=== PATIENT | female | born 1965 | race African-American/Black ===

== ENCOUNTER 2018-05-20 12:13 | Inpatient (IN) | payer OTHER ==
[~2018-05-20] VITALS: Ht 149.9 cm; Wt 101.2 kg
--- NOTE | ~2018-05-20 | HC ---
[facility] [place] [address] CONSULTATION Name: JAYNE REYNOSO Room #: 464-P ADM IN M.R.#: [id number] Admission: 05/20/18 Attend Phys: Coleman Kelly MD Discharge: Date of : 63 Report #: [id number] THIS REPORT FOR: //name// CC: [facility] physician/PCP Coleman Kelly TYPE OF REPORT: Pulmonary consultation. PRIMARY CARE PHYSICIAN: Selma Roldan M.D. REFERRAL PHYSICIAN: Coleman Kelly M.D. REASON FOR REFERRAL: Asthma. HISTORY OF PRESENT ILLNESS: The patient is a 53-year-old -French female with severe asthma, who presents with progressive dyspnea. A pulmonary consultation was requested. The patient states that she was diagnosed with asthma at 24 years of age. She has been relatively mild and intermittent. She has not been on any regular inhalers until the past year. This will be a second ER visit within the past couple of months. She was in her usual state of health until for the past 2-3 weeks, she started to develop increasing dyspnea, nonproductive cough. With worsening symptoms, she presented to the Emergency Room. She also has allergies. Usually it is mild. She states particularly this year has been significant. She does not take antihistamines on a regular basis. When she was seen in the ER a few months ago, she was given Advair. She ran out of medications. She was also given Symbicort along the line. According to the patient, she has never seen a prison officer in the past. Otherwise, denies any nausea, vomiting, diarrhea, hematemesis, hematochezia or melena. She denies any chest pain, productive cough or hemoptysis. PAST MEDICAL HISTORY: Asthma, diagnosed at 24 years of age; spinal stenosis; seasonal allergies, primary during summer; hypertension; osteoarthritis involving neck, low back and bilateral hips, requiring left hip surgery and right knee replacement. PAST SURGICAL HISTORY: As mentioned above including uterine ablation, total hysterectomy with bilateral salpingo-oophorectomy and diagnostic laparoscopy. ALLERGIES: To TALC POWDER, which causes purities and hives. [address] [address] CONSULTATION Name: JAYNE REYNOSO Room #: 464-P ADM IN M.R.#: [id number] Admission: 05/20/18 Attend Phys: Coleman Kelly MD Discharge: Date of : 63 Report #: [id number] HOME MEDICATIONS: Include Symbicort 80 mcg 1 puff twice a day, albuterol p.r.n. and prednisone 20 mg 1 tablet b.i.d. FAMILY HISTORY: Noncontributory. SOCIAL HISTORY: She denies any tobacco or alcohol use. REVIEW OF SYSTEMS: As mentioned above, otherwise 10-point system review negative. PHYSICAL EXAMINATION: GENERAL: She is awake, alert, in no apparent distress. RADIOLOGICAL DATA: Chest x-ray is clear. LABORATORY DATA: WBC 9000 with 8.5% eosinophil, hemoglobin is normal and platelets are normal. Albumin normal. IMPRESSION: 1. Acute exacerbation of asthma, probably related to seasonal allergies. Chest x-ray is clear. Based on the history, asthma appears to be mild and intermittent. 2. Elevated eosinophil counts, is consistent with a history of allergies. 3. Moderate exogenous obesity. She should be screened for possible sleep related breathing disorder. She is at risk for reflux disease, which may affect her asthma. RECOMMENDATIONS: Agree with current treatment including corticosteroids, bronchodilators. DVT and GI prophylaxis recommended. As an outpatient based on pulmonary function test, I will be recommended. She should also be screened for possible sleep disorder. Thank you for this consultation. <ELECTRONICALLY SIGNED> By: Nathan Crook MD 05/22/18 1542 1201 1242 Nathan Crook MD /nt
--- NOTE | ~2018-05-20 | EKG ---
[place] [address] [address] [place] [address] ELECTROCARDIOGRAM REPORT Name: JAYNE REYNOSO Room #: [facility]..#: [id number] Admission: Attend Phys: Discharge: Date of : 63 Report #: [id number] THIS REPORT FOR: //name// [facility] ED Test Date: 2018-05-20 Test Time: 12:18:53 Pat Name: JAYNE REYNOSO Department: Room: Gender: F Seo Professional: [facility] : 1965 Requested By: Jia Johnson Order Number: [id number] MD: Rakan Rizzo Measurements Intervals [place] Rate: 102 P: 58 DC: 145 QRS: 76 QRSD: 66 T: 1 QT: 329 QTc: 429 Interpretive Statements Sinus tachycardia Otherwise no significant abnormality Compared to ECG 07/02/2013 11:47:59 heart rate has increased Electronically Signed On 05-20-2018 13:01:41 CDT by Rakan Rizzo [email or web address] <ELECTRONICALLY SIGNED> By: Rakan Rizzo MD, [facility] 05/20/18 1301 1218 1218 Rakan Rizzo MD, FACC /EPI
[~2018-05-20 12:13] MED LIST: ACCUNEB0.63 MG/3 INH; ACETAMINOPHEN-1 EAC1; ALBUTEROL INHAL17 GM IH; CARISOPRODOL 3350 MG PO; COLACE100 MG; DARVOCET-N 1001 EACH PO; FLAGYL500 MG PO; FLECTOR1 EA TOP; FLEXERIL PO; GABAPENTIN 100100 MG PO; HYDRALAZINE 2525 M1; HYDROCHLOROTHIA25 M1 PO; HYDROCODON-ACE1 EAC7; HYDROCODON-ACE1 EAC7 PO; HYDROCODONE-AP1 EAC6; IBUPROFEN 800800 M1; IBUPROFEN 800800 M1 PO; MEDROL DOSPAK21 TAB PO; MEDROLDOSEPACK PO; METHOCARBAMOL750 MG; MOBIC15 MG PO; MOBIC7.5 MG PO; MOM; NOHOMEMEDICATIONS; NORCO 5-325 TA1 EACH PO; PERCOCET 10-321 EACH; PERCOCET 5-3251 EACH PO; PHENADOZ25 MG RC; PHENTERMINE HCL15 MG PO; PREDNISONE 20 M20 M1 PO; PREDNISONE 20 M20 MG PO; PREDNISONE50 MG PO; PROAIR HFA8.5 GM; SYMBICORT80 MCG/4.1 INH; TRAMADOL 50 MG50 MG; TRAMADOL 50 MG50 MG PO; VALIUM5 MG PO; VENTOLIN HFA 1818 GM INH; VISTARIL 25 MG25 M1 PO; VOLTAREN75 MG PO; ZOFRAN ODT4 MG PO; ZOFRAN4 MG PO; ZPAK PO
[2018-05-20 12:17] VITALS: BP 162/81
[2018-05-20 12:43] LABS: ABSOLUTE NEUTROPHILS 4.4 thou/uL (1.4-8.2); BASOPHILS 0.8 % (0.0-2.0); EOSINOPHILS 8.5 % (0.0-3.0); HEMATOCRIT 37.4 % (37.0-47.0); HEMOGLOBIN 11.7 gm/dL (12.0-15.0); LYMPHOCYTES 36.9 % (24.0-44.0); MCH 25.3 pg (26.0-34.0); MCHC 31.4 g/dL (28.0-37.0); MCV 80.5 fL (80.0-100.0); MONOCYTES 4.9 % (1.0-8.0); PLATELET COUNT 388 thou/uL (150-400); POLYS 48.9 % (36.0-66.0); RBC 4.64 mil/uL (4.20-5.00); RDW 16.7 % (10.5-14.5)
[2018-05-20 12:46] LABS: ANION GAP 10 mmol/L (7-16); BUN 10 mg/dL (7-18); CALCIUM 9.2 mg/dL (8.5-10.1); CHLORIDE 106 mmol/L (98-107); CO2 24 mmol/L (21-32); GLUCOSE 98 mg/dL (74-106); POTASSIUM 3.8 mmol/L (3.5-5.1); SODIUM 140 mmol/L (136-145)
[2018-05-20 12:55] LABS: ALBUMIN 3.7 g/dL (3.4-5.0); SGOT 19 U/L (15-37); SGPT 21 U/L (30-65); TOTAL BILIRUBIN 0.5 mg/dL (<0.1-1.0); TOTAL PROTEIN 8.1 g/dL (6.4-8.2); TROPONIN-I <0.06 ng/mL (<0.06)
[2018-05-20 17:55] VITALS: BP 140/74
[2018-05-20 18:38] VITALS: BP 140/74
[2018-05-20 19:15] VITALS: BP 152/95
[2018-05-21 00:05] VITALS: BP 150/86
[2018-05-21 03:20] VITALS: BP 145/90
[2018-05-21 04:05] LABS: CALCIUM 9.6 mg/dL (8.5-10.1); CREATININE 0.9 mg/dL (0.6-1.0)
[2018-05-21 05:24] LABS: HEMATOCRIT 35.2 % (37.0-47.0); HEMOGLOBIN 11.5 gm/dL (12.0-15.0); MCH 25.6 pg (26.0-34.0); MCHC 32.8 g/dL (28.0-37.0); MCV 78.1 fL (80.0-100.0); RBC 4.5 mil/uL (4.20-5.00); RDW 16.5 % (10.5-14.5); WBC 9.6 thou/uL (4.0-11.0)
[2018-05-21 08:20] VITALS: BP 123/81
[2018-05-21 16:20] VITALS: BP 136/82
[2018-05-21 19:13] VITALS: BP 158/94
[2018-05-22 03:35] VITALS: BP 151/101
[2018-05-22 05:30] LABS: BASOPHILS 0.6 % (0.0-2.0); HEMATOCRIT 35.2 % (37.0-47.0); HEMOGLOBIN 11.1 gm/dL (12.0-15.0); LYMPHOCYTES 13.5 % (24.0-44.0); MCH 24.6 pg (26.0-34.0); MCHC 31.5 g/dL (28.0-37.0); MCV 78.1 fL (80.0-100.0); PLATELET COUNT 409 thou/uL (150-400); POLYS 81.9 % (36.0-66.0); RDW 17.1 % (10.5-14.5); WBC 15.9 thou/uL (4.0-11.0)
[2018-05-22 05:44] LABS: CALCIUM 9.3 mg/dL (8.5-10.1); CREATININE 1.1 mg/dL (0.6-1.0); POTASSIUM 3.9 mmol/L (3.5-5.1)
[2018-05-22 07:50] VITALS: BP 144/93
[2018-05-22 12:34] VITALS: BP 144/93
[2018-05-22] MEDS ORDERED: MUCINEX600 MG PO (12:39)
[2018-05-22] MEDS ORDERED: PREDNISONE 10 M10 MG PO (12:39)
[2018-05-22] MEDS ORDERED: VENTOLIN HFA 1818 GM INH (12:39)
[2018-05-22] MEDS ORDERED: ALBUTEROL2.5 MG/31 INH (12:45)
== END 2018-05-22 16:40 | disposition home or self-care (01) | DRG 189 ==
LOC: ER 12:13 → EROBS 15:08 → 4W 15:08 → 4E 17:54 → 4W 05-21 05:43 → ENTRNSPT 05-22 16:14 → 4W 05-22 16:40
PROVIDERS: Hospitalist; Physician Assistant
DX: J96.01 Acute respiratory failure with hypoxia (principal); J45.52 Severe persistent asthma with status asthmaticus; Z68.42 Body mass index [BMI] 45.0-49.9, adult; Z96.651 Presence of right artificial knee joint; I10 Essential (primary) hypertension; Z96.642 Presence of left artificial hip joint; E66.09 Other obesity due to excess calories; Z90.710 Acquired absence of both cervix and uterus; Z79.899 Other long term (current) drug therapy; Z91.048 Other nonmedicinal substance allergy status
CPT/HCPCS: 10040; 10084

== ENCOUNTER 2018-07-26 22:31 | Emergency (ER) | payer OTHER ==
[~2018-07-26] VITALS: Ht 149.9 cm; Wt 98.0 kg
[~2018-07-26 22:31] MED LIST changes: +ALBUTEROL2.5 MG/31 INH; +MUCINEX600 MG PO; +NEURONTIN 300300 M1 PO; +NORCO 10-325 T1 EACH PO; +PREDNISONE 10 M10 M1 PO; +PREDNISONE 10 M10 MG PO; +TUSSIONEX PENN115 ML PO; +VALACYCLOVIR500 MG PO
[2018-07-27] MEDS ORDERED: COMPACT ULTRAS1 EACH INH (00:46)
[2018-07-27] MEDS ORDERED: FLOVENT HFA 4444 MCG INH (00:46)
[2018-07-27] MEDS ORDERED: PREDNISONE 20 M20 MG PO (00:50)
== END 2018-07-27 01:40 | disposition home or self-care (01) ==
LOC: ER 22:31
DX: J45.901 Unspecified asthma with (acute) exacerbation (principal); M46.92 Unspecified inflammatory spondylopathy, cervical region; M46.96 Unspecified inflammatory spondylopathy, lumbar region; M17.12 Unilateral primary osteoarthritis, left knee; M16.11 Unilateral primary osteoarthritis, right hip; M16.12 Unilateral primary osteoarthritis, left hip; M48.00 Spinal stenosis, site unspecified; I10 Essential (primary) hypertension; Z91.048 Other nonmedicinal substance allergy status; Z96.642 Presence of left artificial hip joint; Z96.651 Presence of right artificial knee joint; Z90.710 Acquired absence of both cervix and uterus

== ENCOUNTER 2018-10-05 09:50 | Emergency (ER) | payer OTHER ==
[~2018-10-05] VITALS: Ht 149.9 cm; Wt 96.6 kg
[~2018-10-05 09:50] MED LIST changes: +CARDIZEM CD120 MG PO; +COMPACT ULTRAS1 EACH INH; +FLOVENT HFA 4444 MCG INH; +IPRAT-ALBUT 0.5-3 ML INH; +LEVALBUTER0.63 MG/3 INH
[2018-10-05] MEDS ORDERED: SYMBICORT160 MCG/4. INH (10:06)
[2018-10-05] MEDS ORDERED: BENADRYL25 MG PO (10:18)
[2018-10-05] MEDS ORDERED: PREDNISONE 20 M20 MG PO (10:18)
[2018-10-05] MEDS ORDERED: PEPCID20 MG PO (10:18)
[2018-10-05 10:55] VITALS: BP 125/74
== END 2018-10-05 10:58 | disposition home or self-care (01) ==
LOC: ER 09:50
DX: L23.6 Allergic contact dermatitis due to food in contact with the skin (principal); L29.9 Pruritus, unspecified; J45.909 Unspecified asthma, uncomplicated; I10 Essential (primary) hypertension; K21.9 Gastro-esophageal reflux disease without esophagitis; M13.862 Other specified arthritis, left knee; M13.852 Other specified arthritis, left hip; M13.851 Other specified arthritis, right hip; Z98.890 Other specified postprocedural states; Z90.710 Acquired absence of both cervix and uterus; Z96.642 Presence of left artificial hip joint; Z96.651 Presence of right artificial knee joint

== ENCOUNTER 2018-11-13 17:22 | Inpatient (IN) | payer OTHER ==
[~2018-11-13] VITALS: Ht 149.9 cm; Wt 97.5 kg
[~2018-11-13 17:22] MED LIST changes: +BENADRYL25 MG PO; +PEPCID20 MG PO; +SYMBICORT160 MCG/4. INH
[2018-11-13 17:23] VITALS: BP 145/91
[2018-11-13 18:06] LABS: ABSOLUTE NEUTROPHILS 13.9 thou/uL (1.4-8.2); BASOPHILS 0.7 % (0.0-2.0); HEMATOCRIT 37.5 % (37.0-47.0); HEMOGLOBIN 12.2 gm/dL (12.0-15.0); LYMPHOCYTES 13.6 % (24.0-44.0); MCH 25.4 pg (26.0-34.0); MCHC 32.7 g/dL (28.0-37.0); MCV 77.6 fL (80.0-100.0); MONOCYTES 5.8 % (1.0-8.0); PLATELET COUNT 361 thou/uL (150-400); POLYS 79.9 % (36.0-66.0); RBC 4.83 mil/uL (4.20-5.00); RDW 16.9 % (10.5-14.5); WBC 17.5 thou/uL (4.0-11.0)
[2018-11-13 18:17] LABS: CALCIUM 9.2 mg/dL (8.5-10.1); POTASSIUM 3.9 mmol/L (3.5-5.1)
[2018-11-13 18:22] LABS: ALBUMIN 3.5 g/dL (3.4-5.0); TOTAL BILIRUBIN 0.8 mg/dL (<0.1-1.0); TOTAL PROTEIN 7.8 g/dL (6.4-8.2)
[2018-11-13 18:53] VITALS: BP 133/97
[2018-11-13 19:51] VITALS: BP 158/94
[2018-11-13 20:00] VITALS: BP 140/93
[2018-11-14 03:02] VITALS: BP 101/61
[2018-11-14 05:31] LABS: HEMATOCRIT 35.6 % (37.0-47.0); HEMOGLOBIN 11.2 gm/dL (12.0-15.0); MCH 24.9 pg (26.0-34.0); MCHC 31.4 g/dL (28.0-37.0); MCV 79.3 fL (80.0-100.0); RBC 4.49 mil/uL (4.20-5.00); RDW 17.3 % (10.5-14.5); WBC 14.7 thou/uL (4.0-11.0)
[2018-11-14 05:52] LABS: CALCIUM 9.1 mg/dL (8.5-10.1); POTASSIUM 3.6 mmol/L (3.5-5.1)
[2018-11-14 08:10] VITALS: BP 114/57
--- NOTE | 2018-11-14 10:17 | NUR ---
Nutrition: consult for high BMI. Pt admitted for pneumonia. Several recent admissions. Pt was educated by JESSICA in Aug for weight loss and heart healthy diet. Pt states she has still been trying to lose weight, but has had trouble d/t recent illnesses. Pt down ~5 lbs over past 2 months. Pt reports poor appetite over past week. Pt had no further questions or concerns. Consider low risk.
--- NOTE | 2018-11-14 12:30 | NUR ---
cm visited with pt at bedside. pt is a & o x 3, and able to make her needs know. intro to cm and dcp. pt preferrs going by [facility]. pt reported " home in apartment, 5 steps down to apartment. use nebulizer at home. unemployed. have rx coverage with co-pay. daughter brought me here and can bring me home. had home health in past and went to rehab at facility [address] after hip. i will go home at discharge"/[facility]. will cont following as needed for dc needs. dcp home
[2018-11-14 17:21] VITALS: BP 102/63
[2018-11-14 19:03] VITALS: BP 101/54
--- NOTE | 2018-11-14 19:57 | NUR ---
QUIET UNEVENTFUL DAY. SINUS RHYTHM ON TELEMETRY. UP INDEPENDENTLY TO BATHROOM. PRODUCTIVE COUGH NOTED. MEDICATED ONCE WITH TYLENOL FOR RIGHT HIP ARTHRITIS PAIN AND HELPFUL. TOLERATING DIET WELL. THROAT SWABBED FOR STREP. WHITE PATCHES NOTED TO THROAT. VERY PLEASANT AND COOPERATIVE. HOPING TO GO HOME TOMORROW.
--- NOTE | 2018-11-15 01:21 | NUR ---
pt was transferred from [facility] at 2100, presents with a pleasant affect,alert and oriented x 4,on RA,pt has utilized tylenol for arthristis pain and benadryl for insomnia,ivf fluids infusing,needs one person assost with adls.personal items within reach.
[2018-11-15 06:55] LABS: BASOPHILS 0.5 % (0.0-2.0); EOSINOPHILS 2.7 % (0.0-3.0); HEMATOCRIT 34.2 % (37.0-47.0); HEMOGLOBIN 11.2 gm/dL (12.0-15.0); LYMPHOCYTES 21.8 % (24.0-44.0); MCH 25.8 pg (26.0-34.0); MCHC 32.9 g/dL (28.0-37.0); MCV 78.4 fL (80.0-100.0); MONOCYTES 7.2 % (1.0-8.0); PLATELET COUNT 350 thou/uL (150-400); POLYS 67.8 % (36.0-66.0); RBC 4.37 mil/uL (4.20-5.00); RDW 17.3 % (10.5-14.5); WBC 11.8 thou/uL (4.0-11.0)
[2018-11-15 07:07] LABS: CALCIUM 9.2 mg/dL (8.5-10.1); CREATININE 1.1 mg/dL (0.6-1.0)
[2018-11-15 07:29] VITALS: BP 93/57
--- NOTE | 2018-11-15 10:45 | NUR ---
ASSUMED CARE OF PATIENT THIS MORNING. PATIENT IS A&OX4. SHE IS UP WITH STANDBY ASSIST. SHE IS CURRENTLY COMPLAINING OF NECK PAIN WHEN SWOLLOWING NO ABNORMAL FINDINGS ON STREP TEST. TYLENOL GIVEN FOR PAIN WILL RE-ASSESS PAIN LEVEL. NO ABNORMAL ASSESSMENT FINDINGS. LAST BOWEL MOVEMENT WAS YESTERDAY. PATIENT WILL POSSIBLY BE DISCHARGED LATER ON TODAY, HOME WITH SELF CARE. PATIENT IS CURRENTLY SITTING ON BED, WITH CALL LIGHT WITHIN REACH. SHE CALLS OUT APPROPRIATELY.
[2018-11-15] MEDS ORDERED: VENTOLIN HFA 1818 GM INH (12:00)
[2018-11-15] MEDS ORDERED: MUCINEX600 MG PO (12:00)
[2018-11-15] MEDS ORDERED: DOXYCYCLINE 10100 MG PO (12:00)
[2018-11-15 12:15] VITALS: BP 93/57
--- NOTE | 2018-11-15 12:22 | NUR ---
PATIENT'S DISCHARGE ORDERS ENTERED INTO THE COMPUTER. SHE WILL BE DISCHARGED HOME WITH TWO PRESCRIPTIONS. SHE WILL FOLLOW UP WITH PCP WITHIN 3-5 DAYS.
--- NOTE | 2018-11-15 12:25 | NUR ---
DISCHARGE NOTE: GARY reviewed chart and spoke with nursing and STAVE AND BOLT EQUALIZER. Pt was transferred to [facility] from and is medically stable for discharge home today. No discharge needs identified at this time, but is available to assist should needs arise.
[2018-11-15 13:07] VITALS: BP 121/77
[2018-11-15 13:11] VITALS: BP 121/77
--- NOTE | 2018-11-15 14:39 | NUR ---
I AGREE WITH NURSING ASSESSMENT DONE BY GUY/ELIZABETH.
== END 2018-11-15 13:27 | disposition home or self-care (01) | DRG 871 ==
LOC: ER 17:22 → EROBS 18:42 → 4W 18:42 → SICU 11-14 20:29 → ENTRNSPT 11-15 13:21 → EDTRNSPTSTS 11-15 13:23 → SICU 11-15 13:27
PROVIDERS: Nurse Practitioner Family; Physician Assistant; ADMIT Internal Medicine Geriatric Medicine
DX: A41.9 Sepsis, unspecified organism (principal); J18.9 Pneumonia, unspecified organism; Z68.41 Body mass index [BMI] 40.0-44.9, adult; J02.9 Acute pharyngitis, unspecified; Z96.651 Presence of right artificial knee joint; J45.909 Unspecified asthma, uncomplicated; I10 Essential (primary) hypertension; M17.12 Unilateral primary osteoarthritis, left knee; M16.0 Bilateral primary osteoarthritis of hip; K21.9 Gastro-esophageal reflux disease without esophagitis; D72.829 Elevated white blood cell count, unspecified; R00.0 Tachycardia, unspecified; M48.00 Spinal stenosis, site unspecified; E66.01 Morbid (severe) obesity due to excess calories; Z90.710 Acquired absence of both cervix and uterus; Z79.899 Other long term (current) drug therapy
CPT/HCPCS: 10045; 15002

== ENCOUNTER 2019-02-12 22:15 | Emergency (ER) | payer OTHER ==
[~2019-02-12] VITALS: Ht 149.9 cm; Wt 95.3 kg
[~2019-02-12 22:15] MED LIST changes: +DOXYCYCLINE 10100 MG PO
[2019-02-13] MEDS ORDERED: SYMBICORT160 MCG/4. INH (00:54)
[2019-02-13] MEDS ORDERED: PREDNISONE 20 M20 MG PO (00:56)
[2019-02-13 01:11] VITALS: BP 136/109
== END 2019-02-13 01:11 | disposition home or self-care (01) ==
LOC: ER 22:15
DX: J45.901 Unspecified asthma with (acute) exacerbation (principal); K21.9 Gastro-esophageal reflux disease without esophagitis; M46.82 Other specified inflammatory spondylopathies, cervical region; M46.86 Other specified inflammatory spondylopathies, lumbar region; M13.862 Other specified arthritis, left knee; M13.852 Other specified arthritis, left hip; M13.851 Other specified arthritis, right hip; Z90.710 Acquired absence of both cervix and uterus; Z88.8 Allergy status to other drugs, medicaments and biological substances

== ENCOUNTER → 2019-05-02 | Outpatient (CLI) | payer OTHER | LOC: RAD 12:16 | DX: M47.817 Spondylosis without myelopathy or radiculopathy, lumbosacral region (principal); M47.812 Spondylosis without myelopathy or radiculopathy, cervical region; M47.814 Spondylosis without myelopathy or radiculopathy, thoracic region; M48.02 Spinal stenosis, cervical region; M25.78 Osteophyte, vertebrae; M25.512 Pain in left shoulder; G89.29 Other chronic pain; Z96.642 Presence of left artificial hip joint; Z91.040 Latex allergy status ==

== ENCOUNTER 2019-10-18 15:12 | Emergency (ER) | payer OTHER ==
[~2019-10-18] VITALS: Ht 149.9 cm; Wt 90.7 kg
[2019-10-18 17:43] LABS: ABSOLUTE NEUTROPHILS 5.1 thou/uL (1.4-8.2); BASOPHILS 1.1 % (0.0-2.0); EOSINOPHILS 3.5 % (0.0-3.0); HEMATOCRIT 38.8 % (37.0-47.0); HEMOGLOBIN 12.4 gm/dL (12.0-15.0); LYMPHOCYTES 33.2 % (24.0-44.0); MCH 25.5 pg (26.0-34.0); MCHC 31.9 g/dL (28.0-37.0); MONOCYTES 5.4 % (1.0-8.0); PLATELET COUNT 422 thou/uL (150-400); POLYS 56.8 % (36.0-66.0); RBC 4.85 mil/uL (4.20-5.00); RDW 15.9 % (10.5-14.5); WBC 9.1 thou/uL (4.0-11.0)
[2019-10-18 17:59] LABS: ANION GAP 12 mmol/L (7-16); BUN 16 mg/dL (7-18); CALCIUM 9.8 mg/dL (8.5-10.1); CHLORIDE 100 mmol/L (98-107); CO2 25 mmol/L (21-32); GLUCOSE 80 mg/dL (74-106); POTASSIUM 3.6 mmol/L (3.5-5.1); SODIUM 137 mmol/L (136-145)
[2019-10-18 18:03] LABS: ALBUMIN 4.1 g/dL (3.4-5.0); SGOT 21 U/L (15-37); SGPT 29 U/L (30-65); TOTAL BILIRUBIN 0.6 mg/dL (<0.1-1.0); TOTAL PROTEIN 8.6 g/dL (6.4-8.2); TROPONIN-I <0.06 ng/mL (<0.06)
[2019-10-18 18:55] VITALS: BP 111/75
--- NOTE | 2019-10-20 16:06 | EKG ---
[address] [address] ELECTROCARDIOGRAM REPORT Name: JAYNE REYNOSO [id number] Admission: 10/18/19 Attend Phys: Discharge: 10/18/19 Date of : 63 Report #: [id number] THIS REPORT FOR: //name// [facility] ED Test Date: 2019-10-18 Test Time: 15:16:48 Pat Name: JAYNE REYNOSO Department: Room: Gender: F Population Health Manager: verito : 1965 Requested By: Angel Luis Redman Order Number: [id number] MD: Varghese De León Measurements Intervals [place] Rate: 109 P: 51 OK: 129 QRS: 53 QRSD: 69 T: 26 QT: 323 QTc: 436 Interpretive Statements Sinus tachycardia Multiple ventricular premature complexes Probable left atrial enlargement Baseline wander in lead(s) V1,V3 Compared to ECG 09/09/2018 11:27:06 Ventricular premature complex(es) now present Electronically Signed On 10-20-2019 16:06:24 INCIDENT RESPONSE ENGINEER by Varghese De León [email or web address] <ELECTRONICALLY SIGNED> By: Varghese De León MD 10/20/19 1606 1516 1516 Vraghese De León MD /EPI
== END 2019-10-18 18:56 | disposition home or self-care (01) ==
LOC: ER 15:12
PROVIDERS: Emergency Medicine
DX: R00.2 Palpitations (principal); I10 Essential (primary) hypertension; K21.9 Gastro-esophageal reflux disease without esophagitis; J45.909 Unspecified asthma, uncomplicated; M19.90 Unspecified osteoarthritis, unspecified site; Z90.710 Acquired absence of both cervix and uterus; Z96.651 Presence of right artificial knee joint; Z96.642 Presence of left artificial hip joint; Z88.8 Allergy status to other drugs, medicaments and biological substances

== ENCOUNTER → 2019-11-06 | Outpatient (CLI) | payer OTHER | LOC: RAD 12:08 | DX: M25.552 Pain in left hip (principal); Z96.642 Presence of left artificial hip joint ==

== ENCOUNTER → 2019-12-17 | Outpatient (CLI) | payer OTHER | LOC: RAD 12:40 | DX: M17.12 Unilateral primary osteoarthritis, left knee (principal); M25.762 Osteophyte, left knee ==

== ENCOUNTER 2019-12-30 13:53 | Emergency (ER) | payer OTHER ==
[~2019-12-30] VITALS: Ht 149.9 cm; Wt 104.3 kg
[2019-12-30] MEDS ORDERED: IBUPROFEN 800800 M1 PO (14:07)
[2019-12-30 15:41] VITALS: BP 127/82
== END 2019-12-30 15:42 | disposition home or self-care (01) ==
LOC: ER 13:53
DX: M54.5 Low back pain (principal); I10 Essential (primary) hypertension; K21.9 Gastro-esophageal reflux disease without esophagitis; J45.909 Unspecified asthma, uncomplicated; M47.812 Spondylosis without myelopathy or radiculopathy, cervical region; M47.816 Spondylosis without myelopathy or radiculopathy, lumbar region; Z90.710 Acquired absence of both cervix and uterus; Z96.651 Presence of right artificial knee joint; Z79.899 Other long term (current) drug therapy; Z91.048 Other nonmedicinal substance allergy status; M16.0 Bilateral primary osteoarthritis of hip; M17.12 Unilateral primary osteoarthritis, left knee

== ENCOUNTER 2020-01-14 18:47 | Emergency (ER) | payer OTHER ==
[~2020-01-14] VITALS: Ht 149.9 cm; Wt 106.7 kg
[2020-01-14 21:00] VITALS: BP 159/94
== END 2020-01-14 21:43 | disposition home or self-care (01) ==
LOC: ER 18:47
DX: J06.9 Acute upper respiratory infection, unspecified (principal); J45.909 Unspecified asthma, uncomplicated; I10 Essential (primary) hypertension; K21.9 Gastro-esophageal reflux disease without esophagitis; Z96.651 Presence of right artificial knee joint; Z96.642 Presence of left artificial hip joint; Z88.8 Allergy status to other drugs, medicaments and biological substances; Z20.828 Contact with and (suspected) exposure to other viral communicable diseases

== ENCOUNTER 2020-05-22 19:20 | Emergency (ER) | payer OTHER ==
[~2020-05-22] VITALS: Ht 149.9 cm; Wt 101.2 kg
[2020-05-22] MEDS ORDERED: IPRATROPIU0.2 MG/1 M INH (22:29)
[2020-05-22] MEDS ORDERED: PREDNISONE 20 M20 MG PO (22:29)
[2020-05-22 22:36] VITALS: BP 161/103
== END 2020-05-22 22:37 | disposition home or self-care (01) ==
LOC: ER 19:20
DX: J45.901 Unspecified asthma with (acute) exacerbation (principal); I10 Essential (primary) hypertension; K21.9 Gastro-esophageal reflux disease without esophagitis; Z90.710 Acquired absence of both cervix and uterus; Z79.899 Other long term (current) drug therapy; Z91.048 Other nonmedicinal substance allergy status

== ENCOUNTER 2020-06-20 10:57 | Emergency (ER) | payer OTHER ==
[~2020-06-20] VITALS: Ht 149.9 cm; Wt 108.0 kg
[~2020-06-20 10:57] MED LIST changes: +IPRATROPIU0.2 MG/1 M INH
[2020-06-20] MEDS ORDERED: SPIRIVA18 MCG INH (11:06)
[2020-06-20 11:44] LABS: URINE BILIRUBIN NEGATIVE (Negative); URINE BLOOD TRACE (Negative); URINE CLARITY CLEAR; URINE COLOR YELLOW; URINE GLUCOSE-RANDOM* NEGATIVE (Negative); URINE KETONES NEGATIVE (Negative); URINE LEUKOCYTES-REFLEX NEGATIVE (Negative); URINE NITRITE-REFLEX NEGATIVE (Negative); URINE PROTEIN (DIPSTICK) NEGATIVE (Negative); URINE SPECIFIC GRAVITY 1.015 (1.005-1.035); URINE UROBILINOGEN 0.2 E.U./dl (0.2-1.0)
[2020-06-20] MEDS ORDERED: TIZANIDINE4 MG/1 TA1 PO (13:55)
[2020-06-20 14:13] VITALS: BP 130/67
== END 2020-06-20 14:21 | disposition home or self-care (01) ==
LOC: ER 10:57
PROVIDERS: Emergency Medicine
DX: M54.31 Sciatica, right side (principal); I10 Essential (primary) hypertension; J45.909 Unspecified asthma, uncomplicated; K21.9 Gastro-esophageal reflux disease without esophagitis; Z90.710 Acquired absence of both cervix and uterus; Z79.899 Other long term (current) drug therapy; Z91.048 Other nonmedicinal substance allergy status

== ENCOUNTER → 2020-07-28 | Outpatient (CLI) | payer OTHER ==
[~2020-07-28] VITALS: Ht 149.9 cm; Wt 106.6 kg
[~2020-07-28] MED LIST changes: +HYDROCHLOROTHIA25 M2 PO; +PROAIR HFA8.5 GM INH; +SPIRIVA RESPIMAT4 G1 INH; +SPIRIVA18 MCG INH; +TIZANIDINE4 MG/1 TA1 PO; +TRELEGY ELLIPT1 EACH INH
--- NOTE | ~2020-07-28 | HPC ---
[facility] [place] [address] PAIN MANAGEMENT CONSULTATION Name: JAYNE REYNOSO Room #: REG JOSSIE Gusman.#: [id number] Admission: 07/28/20 Attend Phys: Chas Pack DO Discharge: Date of : 63 Report #: [id number] THIS REPORT FOR: cc: Selma Roldan MD,Chas Abebe MD, DO ~ CC: Chas Roldan MD DATE OF SERVICE: 07/28/2020 REFERRING PHYSICIAN: Selma Roldan M.D. CHIEF COMPLAINT: Low back pain, intermittent lower extremity pain with paresthesias. HISTORY OF PRESENT ILLNESS: As you know, the patient is a very pleasant, class 3 morbidly obese 55-year-old female, who reports longstanding history of low back pain and continued left hip pain. The patient apparently underwent left total hip arthroplasty in the past, but has had pain since that time. She states she has had recent imaging, which showed changes within the hip that will likely require revision of the hip arthroplasty. She continued to experience chronic back pain and ultimately failed conservative treatment through her primary care team. She was then sent for imaging after coming to the Emergency Department for low back and right flank pain. She was treated in the Emergency Department, then discharged home. She followed up with her primary care physician, who referred the patient on to our clinic to discuss interventional treatment options. The patient denies any specific injury or trauma that may have led to her symptom development. She states that the pain has been present for an extended period of time. She reports she has had epidural injections in the past when she was working at [employer], but states these were years ago. She did note efficacy with their use. PAST MEDICAL HISTORY: 1. Asthma. 2. Obstructive sleep apnea. 3. Essential hypertension. 4. History of uterine fibroids. 5. Spinal stenosis. 6. Chronic fatigue syndrome. 7. Class 3 morbid obesity. PAST SURGICAL HISTORY: 1. Total knee arthroplasty. 2. Hysterectomy. [facility] [address] [place] [address] PAIN MANAGEMENT CONSULTATION Name: JAYNE REYNOSO Room #: REG JOSSIE Gusman.#: [id number] Admission: 07/28/20 Attend Phys: Chas Pack DO Discharge: Date of : 63 Report #: [id number] 3. Left total hip arthroplasty. SOCIAL HISTORY: The patient denies tobacco use, denies IV or illicit drug use. She denies any chronic alcohol use. She has been out of the workforce for some time, she is not currently working; she is not receiving disability income, nor is she in litigation in regards to pain. She is accompanied by her son, who is present in room today. REVIEW OF SYSTEMS: Positive for shortness of air, asthma, wheezing, left hip pain, low back pain. All other review of systems negative per 12-point review of systems other than those listed in the history of present illness. PAIN IMPACT SCORE: 16/70, indicating mild interference in daily activities secondary to pain. ALLERGIES: No reported drug allergies. CURRENT MEDICATIONS: Trelegy Ellipta 100/____ inhaled as needed, hydrochlorothiazide 25 mg once a day, Symbicort 160/4.5 mcg inhaled twice a day, cyclobenzaprine 10 mg at bedtime, albuterol 2 puffs q. 4 hours p.r.n., ibuprofen 800 mg t.i.d. IMAGING: CT of the lumbar spine obtained on 06/20/2020 shows T9-T10 unremarkable, T10-T11 unremarkable, T11-T12 unremarkable. T12-L1 shows mild degenerative changes; no significant central canal nor neural foraminal stenosis. L1-L2; mild disk bulging, no central canal neural foraminal stenosis. L2-L3; mild broad-based disk bulge, mild ligamentum flavum hypertrophy, beginning of marrow changes, but no central canal nor neural foraminal stenosis. L3-L4; moderate hypertrophic degenerative changes, moderate ligamentum flavum hypertrophy, mild central canal stenosis. L4-S1; hypertrophic degenerative changes, moderate AP narrowing of the foramen, mild disk bulge, moderate central canal stenosis. There is no L5-S1 level. PQRS: The patient has known arthritic changes of the lumbar spine, bilateral hips and bilateral knees. No rheumatoid arthritis. She is placing current pain score at 8/10. She is a fall risk, but has not had a fall in the last 3 months. She does not use any type of ambulatory device or balance device. She is not on blood thinners, but is treated for hypertension. She is not on chronic opioids and has a low opiate addiction potential based on our assessment tool. Pain impact 16/70, [id number] interference to daily activities secondary to pain. PHYSICAL EXAMINATION: VITAL SIGNS: Blood pressure 117/81, pulse 99, respiratory rate 16 and unlabored. The patient is 95% on room air. Height 4 feet 11 inches tall, weight 235 pounds, BMI calculated 47.4. [address] [address] PAIN MANAGEMENT CONSULTATION Name: JAYNE REYNOSO Room #: REG JOSSIE Waite#: [id number] Admission: 07/28/20 Attend Phys: Chas Pack DO Discharge: Date of : 63 Report #: [id number] GENERAL: Well-developed, well-nourished, well-hydrated, class 3 severely morbidly obese 55-year-old female appearing stated age, placing current pain score at 8/10. HEENT: Normocephalic, atraumatic. Pupils equal, round and reactive to light. Extraocular muscles are intact. NEUROLOGIC: Speech is fluent. The patient is deemed a good historian. LUNGS: Clear at present, though there is a prolonged expiratory phase and some wheezing noted at end exhalation. CARDIOVASCULAR: Appears regular. No appreciable gallop, no rub. ABDOMEN: Soft, severely obese, normoactive bowel sounds. EXTREMITIES: Show no clubbing, no cyanosis. There is what appears to be 1+ nonpitting lower extremity edema bilaterally. MUSCULOSKELETAL: Lower extremity strength is symmetrical, but deconditioned. Strength is 5/5. She is intact to light touch from L1 through S2 dermatomes. Seated straight leg raising negative; supine straight leg raising is equivocal, mainly on the right side, negative left. There is pain elicited with movement of the left hip, both with the seated and straight leg raising, as well as GUADALUPE test, indicating intrinsic hip pathology. There is some pain elicited with GUADALUPE test on the right, consistent with osteoarthritic changes. Gait is antalgic and it appears to be favoring the left lower extremity due to left hip pain. Ankle clonus negative, Babinski is negative. Lumbar provocation testing is met with some increase in axial back pain, limited secondary to body habitus. ASSESSMENT: 1. Symptomatic lumbar radiculopathy. 2. Central canal stenosis of the lumbar spine. 3. Displacement of lumbar intervertebral disk with radiculopathy. 4. Lumbosacral spondylosis with radiculopathy. 5. Facet arthropathy of the lumbar spine. 6. Chronic intractable pain. PLAN: 1. Based on today's physical exam, the history the patient has provided, the description the patient uses in regards to pain as well as the patient's current reports of pain intensity, the likely source of the patient's symptoms is her central canal stenosis at the L4-S1 level. As indicated in the MRI, the patient does not have a fifth lumbar vertebra; this appears to be sacralization of this vertebra, a normal variant. The sources of her symptoms appear to be multifactorial secondary to the disk bulge and facet arthropathy of the L4-S1 level. We discussed this with the patient today. Following was discussed with the patient for treatment options after we spent about 25 minutes' time reviewing the MRI, the findings therein and how they correlate to her current symptoms. The following was discussed with the patient for treatment options. - We discussed physical therapy, stretching exercises, core strengthening and a concerted effort at weight loss as a treatment course. We discussed medication management with suggestions of treatment to the [place] [address] PAIN MANAGEMENT CONSULTATION Name: JAYNE REYNOSO Room #: REG CL Ravindra#: [id number] Admission: 07/28/20 Attend Phys: Chas Pack DO Discharge: Date of : 63 Report #: [id number] nonsteroidal anti-inflammatories and neuropathic pain medications such as amitriptyline, nortriptyline, Cymbalta, Lyrica or gabapentin. We discussed lumbar epidural injections under fluoroscopic guidance as a treatment option. We also discussed spinal cord stimulator therapy and ultimately surgical options. After reviewing the risks and benefits of all the proposed treatment options, the patient chose to move forward with a lumbar epidural injection under fluoroscopic guidance. 2. The patient was advised that due to third green party payer restrictions, authorization would have to be obtained before the patient could undergo a lumbar epidural injection. Authorization could take anywhere from 4 to 7 working days; we will begin this process immediately. Once we have achieved authorization, we will contact the patient, having her return to undergo the first in the series of epidural injections to address lumbar radicular symptoms secondary to spinal stenosis. 3. No medication changes made at today's visit. The patient will continue current medical therapy as previously prescribed. 4. We will see the patient back in followup visit once we have achieved authorization to undergo the first in a series of requested epidural injections. We wish to thank Dr. Selma Roldan for the opportunity to see this patient in consultation. We will keep you apprised of response to treatment as we address lumbar radicular symptoms. Again, we wish to thank you for the opportunity to see this patient in consultation. By: [id number] Chas Pack DO /rene
[2020-07-28 14:44] VITALS: BP 117/81
--- NOTE | 2020-07-28 15:08 | NUR ---
Pain Clinic Assessment: 1. History of Osteoarthritis: Left Lower Extremity Right Lower Extremity History of Rheumatoid Arthritis: Not Applicable 2. Height: 4 ft. 11 in. 149.9 cm. Weight: 235.0 lb. oz. 106.596 kg. Patient's BMI: 47.4 3. Vital Signs: BP: 117/81 Pulse: 99 Resp: 16 Temp: 02 Sat: 95 ECG Mon: 4. Pain Intensity: 8 5. Fall Risk: Dizziness: Y Needs help standing or walking: Y Fallen in the last 3 months: N Fall risk comments: 6. Patient on Blood Thinner: None 7. History of Hypertension: Y 8. Opioid Therapy greater than 6 weeks: N Opiate Contract Signed: 9. Risk Assessment Tool Provided: LOW 10. Functional Assessment Tool: 11. Recreational Drug Use: Never Drug Type: Tobacco Use: Never Smoker Tobacco Type: Amount or Packs/day: How Many Years: Alcohol Use: No Frequency: Quant:
== END ==
LOC: PAIN 07-20 10:45
PROVIDERS: ATTEND Anesthesiology Pain Medicine
DX: M47.27 Other spondylosis with radiculopathy, lumbosacral region (principal); M48.061 Spinal stenosis, lumbar region without neurogenic claudication; M51.16 Intervertebral disc disorders with radiculopathy, lumbar region; G89.29 Other chronic pain; R20.2 Paresthesia of skin; M79.609 Pain in unspecified limb; J45.909 Unspecified asthma, uncomplicated; Z79.899 Other long term (current) drug therapy

== ENCOUNTER → 2020-08-03 | Outpatient (CLI) | payer OTHER ==
[~2020-08-03] VITALS: Ht 149.9 cm; Wt 106.6 kg
--- NOTE | ~2020-08-03 | HPC ---
[facility] [place] [address] PAIN MANAGEMENT CONSULTATION Name: JAYNE REYNOSO Room #: REG [facility]..#: [id number] Admission: 08/03/20 Attend Phys: Chas Pack DO Discharge: Date of : 63 Report #: [id number] CC: Chas Roldan MD DATE OF SERVICE: 08/03/2020 REFERRING PHYSICIAN: Selma Roldan MD CHIEF COMPLAINT: Low back pain, intermittent lower extremity pain and paresthesias. HISTORY OF PRESENT ILLNESS: As you know, the patient is a very pleasant, class 3, morbidly obese 55-year-old female with longstanding history of low back pain and continued left hip pain, who returns today in followup visit in preparation for a lumbar epidural injection under fluoroscopic guidance. We have received authorization for the patient to undergo the procedure. She returns with pain level of 7-8/10. She denies new injury or trauma or any changes in medical history since our visit of 07/28/2020. She returns for the first in a series of lumbar epidural injections to address lumbar radicular pain. ALLERGIES: No known drug allergies. CURRENT MEDICATIONS: Trelegy Ellipta, hydrochlorothiazide, Symbicort, cyclobenzaprine, albuterol, ibuprofen. SOCIAL HISTORY: The patient denies tobacco use. Denies IV or illicit drug use. Denies any chronic alcohol use. She has been out of the workforce for an extended period of time. She is unaccompanied today. IMAGING: No new imaging available. PQRS: The patient has known arthritic changes of the lumbar spine, bilateral hips and knees. No rheumatoid arthritis. She is placing pain today at a level of 7-8/10. She is a fall risk, but has not had a fall in last 3 months. She is not on blood thinners, but is treated for hypertension. She is not on opioids and has a low opiate addiction potential. Pain impact is 16/70, mild interference of daily activities secondary to pain. PHYSICAL EXAMINATION: VITAL SIGNS: Blood pressure 121/88, pulse is 96, respiratory rate 20 and unlabored. The patient is 98% on room air. Height 4 feet 11 inches tall, weight 235 pounds, BMI calculated 47.4. GENERAL: Well-developed, well-nourished, well-hydrated, class 3, morbidly obese 55-year-old female appearing stated age, pain is rated today at 7-8/10. HEENT: Normocephalic, atraumatic. Pupils equal, round and reactive. Speech is fluent. EXTREMITIES: Show no clubbing, no cyanosis, no edema. MUSCULOSKELETAL: Lower extremity strength equal and symmetrical 5/5. Deconditioning noted bilaterally. Intact to light touch, again from L1 through S2 dermatomes. Seated straight leg raising negative. Supine straight leg raising equivocal. ASSESSMENT: 1. Symptomatic lumbar radiculopathy. 2. Central canal stenosis of the lumbar spine. 3. Displacement of lumbar intervertebral disk with radiculopathy. 4. Lumbosacral spondylosis with radiculopathy. 5. Facet arthropathy of the lumbar spine. 6. Chronic intractable pain. PLAN: 1. The patient returns today in followup visit having received authorization to undergo lumbar epidural injection under fluoroscopic guidance. We have advised the patient of the risks and the benefits of a lumbar epidural injection. These risks include but are not necessarily limited to bleeding, bruising, infection, worsening pain, no relief of pain, also risk of temporary or permanent muscle weakness, temporary or permanent nerve damage, possible paralysis and . The patient states understood and wished to proceed. 2. No medication changes made at today's visit. The patient will continue current medical therapy as prior prescribed. 3. We will see the patient back in followup visit on an as needed basis for possible next in the series of lumbar epidural injections. PROCEDURE NOTE PROCEDURE PERFORMED: L5-S1 intralaminar epidural steroid injection under fluoroscopic guidance. This is the first procedure of the first series that the patient is undergoing. After obtaining written consent, the patient was taken back to the fluoroscopy suite, placed in a prone position with pillow under the abdomen to decrease lumbar lordosis. The skin overlying the lumbosacral area was then prepped and draped in aseptic fashion. The L5-S1 vertebral interspace was then identified by AP fluoroscopy. The skin and subcutaneous tissue overlying the target site of injection was anesthetized with 3 mL 1% lidocaine. A 20-gauge 6 inch Tuohy needle was then advanced under fluoroscopic guidance towards the epidural space using a parasagittal approach. The epidural space was identified using loss of resistance to air technique. After negative aspiration for heme or cerebrospinal fluid, a total of 1 mL of Omnipaque was injected. A lumbar epidurogram was confirmed using both AP and lateral fluoroscopy. After negative aspiration for heme or cerebrospinal fluid, 5 mL of solution containing 2 mL 40 mg per mL, 80 mg total triamcinolone along with 3 mL of lidocaine 1% was injected in increments. Contrast spread was noted posterior epidural space. The needle was then retracted approximately half way and needle tract flushed with 1 mL of 1% lidocaine. Needle was then removed. There were no apparent sensory or motor deficits in the lower extremity following the procedure. A sterile bandage was placed over the injection site. The heart rate, pulse, oximetry and blood pressure were continuously monitored after the procedure. There were no apparent complications. The patient tolerated the procedure well and was carefully escorted to the recovery room in stable condition. There were no apparent complications. After meeting discharge criteria, the patient was then discharged home. By: 1121 [id number] Chas Pack DO /nt
[2020-08-03 15:04] VITALS: BP 121/88
--- NOTE | 2020-08-03 15:12 | NUR ---
Pain Clinic Assessment: 1. History of Osteoarthritis: Left Lower Extremity Right Lower Extremity History of Rheumatoid Arthritis: Not Applicable 2. Height: 4 ft. 11 in. 149.9 cm. Weight: 235.0 lb. oz. 106.596 kg. Patient's BMI: 47.4 3. Vital Signs: BP: 121/88 Pulse: 96 Resp: 20 Temp: 02 Sat: 98 ECG Mon: 4. Pain Intensity: 7-8 5. Fall Risk: Dizziness: N Needs help standing or walking: Y Fallen in the last 3 months: N Fall risk comments: 6. Patient on Blood Thinner: None 7. History of Hypertension: Y 8. Opioid Therapy greater than 6 weeks: N Opiate Contract Signed: 9. Risk Assessment Tool Provided: LOW 10. Functional Assessment Tool: 11. Recreational Drug Use: Never Drug Type: Tobacco Use: Never Smoker Tobacco Type: Amount or Packs/day: How Many Years: Alcohol Use: No Frequency: Quant:
== END | disposition home or self-care (01) ==
LOC: PAIN 06:56
PROVIDERS: ATTEND Anesthesiology Pain Medicine
DX: M51.16 Intervertebral disc disorders with radiculopathy, lumbar region (principal); M47.27 Other spondylosis with radiculopathy, lumbosacral region; M47.26 Other spondylosis with radiculopathy, lumbar region; M48.061 Spinal stenosis, lumbar region without neurogenic claudication; G89.29 Other chronic pain; I10 Essential (primary) hypertension; J45.909 Unspecified asthma, uncomplicated; M19.90 Unspecified osteoarthritis, unspecified site; Z98.890 Other specified postprocedural states; Z79.899 Other long term (current) drug therapy

== ENCOUNTER 2020-09-04 00:59 | Emergency (ER) | payer OTHER ==
[~2020-09-04] VITALS: Ht 149.9 cm; Wt 106.6 kg
--- NOTE | ~2020-09-04 | EKG ---
[facility] [place] [address] ELECTROCARDIOGRAM REPORT Name: JAYNE REYNOSO [id number] Admission: 09/04/20 Attend Phys: Discharge: 09/04/20 Date of : 63 Report #: [id number] THIS REPORT FOR: cc: Selma Roldan MD, Nora P. MD Epiphany, Epiphany MD ~ THIS REPORT FOR: //name// [facility] ED Test Date: 2020-09-04 Test Time: 01:14:36 Pat Name: JAYNE REYNOSO Department: Room: Gender: F Repair Department [facility] 1965 Requested By: Chilango Donald Order Number: [id number] MD: Measurements Intervals [place] Rate: 94 P: 35 OK: 133 QRS: 59 QRSD: 85 T: 49 QT: 356 QTc: 446 Interpretive Statements Sinus rhythm Partial missing lead(s): V3 No previous ECG available for comparison [email or web address] By: 0114 0114 Epiphany EpiphanyMD /EPI
[2020-09-04 02:49] LABS: ABSOLUTE NEUTROPHILS 6.9 thou/uL (1.4-8.2); BASOPHILS 1.3 % (0.0-2.0); EOSINOPHILS 1.3 % (0.0-3.0); HEMATOCRIT 34.8 % (37.0-47.0); HEMOGLOBIN 11.2 gm/dL (12.0-15.0); LYMPHOCYTES 30.8 % (24.0-44.0); MCH 25.2 pg (26.0-34.0); MCHC 32.3 g/dL (28.0-37.0); MCV 78.1 fL (80.0-100.0); MONOCYTES 5.3 % (1.0-8.0); PLATELET COUNT 450 thou/uL (150-400); POLYS 61.3 % (36.0-66.0); RBC 4.46 mil/uL (4.20-5.00); RDW 16.8 % (10.5-14.5); WBC 11.2 thou/uL (4.0-11.0)
[2020-09-04 03:06] LABS: ALBUMIN 3.5 g/dL (3.4-5.0); ANION GAP 9 mmol/L (7-16); BUN 15 mg/dL (7-18); CHLORIDE 99 mmol/L (98-107); CO2 28 mmol/L (21-32); CREATININE 1.3 mg/dL (0.6-1.0); GLUCOSE 114 mg/dL (74-106); MAGNESIUM 2.1 mg/dL (1.8-2.4); POTASSIUM 3.6 mmol/L (3.5-5.1); SGOT 16 U/L (15-37); SGPT 22 U/L (30-65); SODIUM 136 mmol/L (136-145); TOTAL BILIRUBIN 0.3 mg/dL (0.2-1.0); TROPONIN-I <0.06 ng/mL (<0.06)
[2020-09-04 03:20] LABS: AMP/METHAMP Negative (Negative); BARBITURATES Negative (Negative); BENZODIAZEPINES Negative (Negative); COCAINE Negative (Negative); METHADONE Negative (Negative); OPIATES Negative (Negative); PCP Negative (Negative)
[2020-09-04] MEDS ORDERED: APAP W/CODEINE1 TA2 PO (05:11)
[2020-09-04] MEDS ORDERED: ONDANSETRON ODT4 MG PO (05:11)
[2020-09-04] MEDS ORDERED: PROTONIX40 MG PO (05:11)
[2020-09-04 05:24] VITALS: BP 123/86
== END 2020-09-04 05:25 | disposition home or self-care (01) ==
LOC: ER 00:59
PROVIDERS: Emergency Medicine
DX: R07.89 Other chest pain (principal); J45.909 Unspecified asthma, uncomplicated; R10.13 Epigastric pain; R29.0 Tetany; Z90.710 Acquired absence of both cervix and uterus; Z79.1 Long term (current) use of non-steroidal anti-inflammatories (NSAID); Z79.899 Other long term (current) drug therapy

== ENCOUNTER → 2020-09-21 | Outpatient (CLI) | payer OTHER ==
[~2020-09-21] VITALS: Ht 149.9 cm; Wt 107.1 kg
[~2020-09-21] MED LIST changes: +APAP W/CODEINE1 TA2 PO; +ONDANSETRON ODT4 MG PO; +PROTONIX40 MG PO
[2020-09-21 08:44] VITALS: BP 126/73
--- NOTE | 2020-09-21 09:01 | NUR ---
Pain Clinic Assessment: 1. History of Osteoarthritis: BILATERAL LEGS RIGHT KNEE REPLACEMENT History of Rheumatoid Arthritis: Not Applicable 2. Height: 4 ft. 11 in. 149.9 cm. Weight: 236.2 lb. oz. 107.140 kg. Patient's BMI: 47.7 3. Vital Signs: BP: 126/73 Pulse: 96 Resp: 16 Temp: 02 Sat: 100 ECG Mon: 4. Pain Intensity: 7 5. Fall Risk: Dizziness: Y Needs help standing or walking: Y Fallen in the last 3 months: N Fall risk comments: 6. Patient on Blood Thinner: None 7. History of Hypertension: Y 8. Opioid Therapy greater than 6 weeks: N Opiate Contract Signed: 9. Risk Assessment Tool Provided: LOW 10. Functional Assessment Tool: 11. Recreational Drug Use: Never Drug Type: Tobacco Use: Never Smoker Tobacco Type: Amount or Packs/day: How Many Years: Alcohol Use: No Frequency: Quant:
--- NOTE | 2020-09-22 11:46 | HPC ---
[facility] [place] [address] PAIN MANAGEMENT CONSULTATION Name: JAYNE REYNOSO Room #: REG [facility].#: [id number] Admission: 09/21/20 Attend Phys: Chas Pack DO Discharge: Date of : 63 Report #: [id number] THIS REPORT FOR: cc: Selma Roldan MD,Chas Abebe MD, DO ~ DATE OF SERVICE: 09/21/2020 REFERRING PHYSICIAN: Selma Roldan MD CHIEF COMPLAINT: Low back pain, left buttock and posterolateral thigh pain. HISTORY OF PRESENT ILLNESS: As you know, the patient is a class 3, morbidly obese 55-year-old female who reports longstanding history of low back pain and left hip and buttock and posterolateral thigh pain. She underwent a total hip arthroplasty, which reportedly caused her symptoms. The patient was seen per the request of her primary care physician, Dr. Roldan to discuss injection therapies as a way to treat symptoms. The patient does have some low back symptoms and posterolateral thigh symptoms that may be related to lumbar issues, but also has changes in her stance and gait as well as positioning of the pelvis after her total hip arthroplasty, which may be a significant contributor to her overall pain. She underwent a lumbar epidural injection under fluoroscopic guidance on her visit of 08/03/2020 where she reports improvement in symptoms for approximately 2-3 weeks with about 75% improvement in overall pain. She returns today in followup visit with pain level of 7/10 to undergo next in the series of injections. She was recently seen by her orthopedic team and underwent aspiration of a lipoma without improvement in symptoms directly overlying her painful area. She has been referred back to our clinic to undergo second in series of lumbar epidural injections. ALLERGIES: No reported drug allergies. CURRENT MEDICATIONS: See chart. SOCIAL HISTORY: The patient denies tobacco use. Denies IV or illicit drug use. Denies any chronic alcohol use. She has been out of work force for some time. She is unaccompanied at today's visit. IMAGING: No new imaging available. PQRS: The patient has arthritic changes of the lumbar spine, bilateral hips and bilateral knees. No rheumatoid arthritis. She is placing pain intensity is 7/10. She is a fall risk, but has not had a fall in last 3 months. She does use ambulatory device in the form of a cane today. She is not on blood thinners, but is treated for hypertension. She is not on chronic opioids and [address] [address] PAIN MANAGEMENT CONSULTATION Name: JAYNE REYNOSO Room #: REG [facility].#: [id number] Admission: 09/21/20 Attend Phys: Chas Pack DO Discharge: Date of : 63 Report #: [id number] has a low opioid addiction potential based on our assessment tool. Pain impact today , similar to previous evaluations. PHYSICAL EXAMINATION: VITAL SIGNS: Blood pressure 126/73, pulse is 96, respiratory rate 16 and unlabored. The patient is 100% on room air. Height 4 feet 11 inches tall, weight 236.2 pounds, BMI calculated 47.7. GENERAL: Well-developed, well-nourished, well-hydrated, class 3, severely morbidly obese 55-year-old female appearing stated age, pain is rated at 7/10. HEENT: Normocephalic, atraumatic. Pupils are equal, round and reactive. EXTREMITIES: Show no clubbing, no cyanosis. No appreciable edema. MUSCULOSKELETAL: Lower extremity strength is symmetrical, was deconditioned again today. She is intact to light touch from L1 through S2 dermatomes. Seated straight leg raising negative. Supine straight leg raising is equivocal. Sergio's test is positive. ASSESSMENT: 1. Symptomatic lumbar radiculopathy. 2. Central canal stenosis of lumbar spine. 3. Displacement of lumbar intervertebral disk with radiculopathy. 4. Lumbosacral spondylosis with radiculopathy. 5. Facet arthropathy of the lumbar spine. 6. Chronic hip pain, status post total hip arthroplasty. 7. Chronic intractable pain. PLAN: 1. The patient returns today in followup visit having noted 3 weeks of improvement of 75% with the previous epidural injection. She is returning today in followup visit to undergo second in the series. The patient has been advised risks and benefits of this procedure. These risks include but are not necessarily limited to bleeding, bruising, infection, worsening pain, no relief of pain, also risk of temporary or permanent muscle weakness, temporary or permanent nerve damage, possible paralysis and . The patient states understood and wished to proceed. 2. No medication changes made at today's visit. The patient will continue current medical therapy as prior prescribed. 3. We plan to see the patient back in followup visit on an as needed basis for possible next in the series of lumbar epidural injections. I do feel there is a component of pelvic unleveling that is causing the patient's symptoms. This is due to the total hip arthroplasty. I did advise the patient that symptoms of pelvic unleveling, status post total hip arthroplasty may last as long as 2 years and she may need to discuss her case further with her PCP in regards to initiation of medications for pain control. PROCEDURE NOTE: [address] [address] PAIN MANAGEMENT CONSULTATION Name: JAYNE REYNOSO Room #: REG [facility]#: [id number] Admission: 09/21/20 Attend Phys: Chas Pack DO Discharge: Date of : 63 Report #: [id number] DESCRIPTION OF PROCEDURE: L5-S1 interlaminar epidural steroid injection under fluoroscopic guidance using a left paramedian approach. This is the second procedure of the first series that the patient is undergoing. After obtaining written consent, the patient was taken back to the fluoroscopy suite, placed in a prone position with pillow under the abdomen to decrease lumbar lordosis. The skin overlying the lumbosacral area was then prepped and draped in aseptic fashion. The L5-S1 vertebral interspace was then identified by AP fluoroscopy. The skin and subcutaneous tissue overlying the target site of injection was anesthetized with 3 mL 1% lidocaine. A 20-gauge 4-1/2 inch Tuohy needle was then advanced under fluoroscopic guidance towards the epidural space using a left paramedian approach. The epidural space was identified using loss of resistance to air technique. After negative aspiration for heme or cerebrospinal fluid, a total of 1 mL of Omnipaque was injected. A lumbar epidurogram was confirmed using both AP and lateral fluoroscopy. After negative aspiration for heme or cerebrospinal fluid, 5 mL of a solution containing 2 mL 40 mg per mL, 80 mg total triamcinolone along with 3 mL lidocaine 1% was injected in increments. Contrast spread was noted posterior epidural space. The needle was then retracted approximately half way and needle tract flushed with 1% of lidocaine. Needle was then removed. There were no apparent sensory or motor deficits in the lower extremity following the procedure. A sterile bandage was placed over the injection site. The heart rate, pulse, oximetry and blood pressure were continuously monitored after the procedure. There were no apparent complications. The patient tolerated this procedure well and was carefully escorted to the recovery room in stable condition. There were no apparent complications. After meeting discharge criteria, the patient was then discharged home. <ELECTRONICALLY SIGNED> By: Chas Pack DO 09/22/20 1146 1212 2224 Chas Pack DO /nt
== END | disposition home or self-care (01) ==
LOC: PAIN 06:51
PROVIDERS: ATTEND Anesthesiology Pain Medicine
DX: M51.16 Intervertebral disc disorders with radiculopathy, lumbar region (principal); M48.061 Spinal stenosis, lumbar region without neurogenic claudication; M47.27 Other spondylosis with radiculopathy, lumbosacral region; M47.26 Other spondylosis with radiculopathy, lumbar region; G89.29 Other chronic pain; I10 Essential (primary) hypertension; M19.90 Unspecified osteoarthritis, unspecified site; E66.01 Morbid (severe) obesity due to excess calories; Z98.890 Other specified postprocedural states; Z79.899 Other long term (current) drug therapy; Z68.42 Body mass index [BMI] 45.0-49.9, adult

== ENCOUNTER 2020-11-05 15:20 | Emergency (ER) | payer OTHER ==
[~2020-11-05] VITALS: Ht 149.9 cm; Wt 103.4 kg
[2020-11-05 16:07] LABS: HEMATOCRIT 38.3 % (37.0-47.0); HEMOGLOBIN 12.2 gm/dL (12.0-15.0); MCH 25.2 pg (26.0-34.0); MCHC 31.8 g/dL (28.0-37.0); MCV 79.3 fL (80.0-100.0); RBC 4.83 mil/uL (4.20-5.00); WBC 9.4 thou/uL (4.0-11.0)
[2020-11-05 16:22] LABS: CALCIUM 10.1 mg/dL (8.5-10.1); CREATININE 1.2 mg/dL (0.6-1.0); POTASSIUM 3.4 mmol/L (3.5-5.1)
[2020-11-05 16:27] LABS: ALBUMIN 3.6 g/dL (3.4-5.0); TOTAL BILIRUBIN 0.3 mg/dL (0.2-1.0); TOTAL PROTEIN 8.1 g/dL (6.4-8.2)
[2020-11-05] MEDS ORDERED: PROTONIX 20 MG20 MG PO (16:44)
[2020-11-05] MEDS ORDERED: ZOFRAN ODT4 MG PO (16:44)
[2020-11-05 17:29] LABS: URINE BILIRUBIN NEGATIVE (Negative); URINE BLOOD TRACE (Negative); URINE CLARITY CLEAR; URINE COLOR YELLOW; URINE GLUCOSE-RANDOM* NEGATIVE (Negative); URINE KETONES NEGATIVE (Negative); URINE LEUKOCYTES-REFLEX NEGATIVE (Negative); URINE NITRITE-REFLEX NEGATIVE (Negative); URINE PROTEIN (DIPSTICK) NEGATIVE (Negative); URINE SPECIFIC GRAVITY 1.015 (1.005-1.035); URINE UROBILINOGEN 0.2 E.U./dl (0.2-1.0)
[2020-11-05 17:45] VITALS: BP 134/74
== END 2020-11-05 17:45 | disposition home or self-care (01) ==
LOC: ER 15:20
PROVIDERS: Emergency Medicine
DX: K29.70 Gastritis, unspecified, without bleeding (principal); Z90.710 Acquired absence of both cervix and uterus; Z79.1 Long term (current) use of non-steroidal anti-inflammatories (NSAID); Z79.899 Other long term (current) drug therapy

== ENCOUNTER 2021-01-13 14:14 | Emergency (ER) | payer OTHER ==
[~2021-01-13] VITALS: Ht 149.9 cm; Wt 102.5 kg
[~2021-01-13 14:14] MED LIST changes: +PROTONIX 20 MG20 MG PO
[2021-01-13] MEDS ORDERED: CYCLOBENZAPRINE5 MG PO (16:06)
[2021-01-13] MEDS ORDERED: NORCO5 PO (16:06)
[2021-01-13 16:44] VITALS: BP 132/86
[2021-01-19] MEDS ORDERED: HYDROCODON-ACE1 EAC7 PO (09:58)
[2021-01-21] MEDS ORDERED: ADIPEX-P37.5 MG PO (13:16)
[2021-01-21] MEDS ORDERED: PROTONIX40 M2 PO (13:16)
[2021-01-21] MEDS ORDERED: PREDNISONE PO (13:18)
== END 2021-01-13 15:14 | disposition home or self-care (01) ==
LOC: ER 14:14
DX: M54.5 Low back pain (principal); M25.552 Pain in left hip; Z79.899 Other long term (current) drug therapy; Z90.710 Acquired absence of both cervix and uterus; V49.59XA Passenger injured in collision with other motor vehicles in traffic accident, initial encounter; Y93.89 Activity, other specified; Y92.413 State road as the place of occurrence of the external cause; Y99.9 Unspecified external cause status

== ENCOUNTER 2021-01-16 20:16 | Emergency (ER) | payer OTHER ==
[~2021-01-16] VITALS: Ht 149.9 cm; Wt 101.6 kg
[~2021-01-16 20:16] MED LIST changes: +CYCLOBENZAPRINE5 MG PO; +NORCO5 PO
[2021-01-16 20:24] VITALS: BP 124/90
[2021-01-16] MEDS ORDERED: MEDROLDOSEPACK PO (21:15)
[2021-01-16] MEDS ORDERED: IBUPROFEN 800800 M1 PO (21:15)
== END 2021-01-16 21:25 | disposition home or self-care (01) ==
LOC: ER 20:16
DX: M54.5 Low back pain (principal); Z90.710 Acquired absence of both cervix and uterus; Z79.899 Other long term (current) drug therapy; Z79.1 Long term (current) use of non-steroidal anti-inflammatories (NSAID)

== ENCOUNTER → 2021-01-19 | Outpatient (CLI) | payer OTHER ==
[~2021-01-19] VITALS: Ht 149.9 cm; Wt 100.2 kg
[~2021-01-19] MED LIST changes: +ADIPEX-P37.5 MG PO; +PREDNISONE PO; +PROTONIX40 M2 PO
[2021-01-19 09:59] VITALS: BP 93/56
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
== END ==
LOC: PAIN 06:52
PROVIDERS: ATTEND Anesthesiology Pain Medicine
DX: M47.26 Other spondylosis with radiculopathy, lumbar region (principal); M48.061 Spinal stenosis, lumbar region without neurogenic claudication; M51.16 Intervertebral disc disorders with radiculopathy, lumbar region; M47.27 Other spondylosis with radiculopathy, lumbosacral region; M25.552 Pain in left hip

== ENCOUNTER → 2021-01-21 | Outpatient (CLI) | payer OTHER ==
[~2021-01-21] VITALS: Ht 149.9 cm; Wt 101.8 kg
[2021-01-21 13:25] VITALS: BP 117/84
--- NOTE | 2021-01-21 13:27 | NUR ---
Pain Clinic Assessment: 1. History of Osteoarthritis: BILATERAL LEGS RIGHT KNEE REPLACEMENT History of Rheumatoid Arthritis: Not Applicable 2. Height: 4 ft. 11 in. 149.9 cm. Weight: 224.4 lb. oz. 101.787 kg. Patient's BMI: 45.3 3. Vital Signs: BP: 117/84 Pulse: 83 Resp: 14 Temp: 02 Sat: 98 ECG Mon: 4. Pain Intensity: 7-8 5. Fall Risk: Dizziness: N Needs help standing or walking: N Fallen in the last 3 months: N Fall risk comments: 6. Patient on Blood Thinner: None 7. History of Hypertension: Y 8. Opioid Therapy greater than 6 weeks: N Opiate Contract Signed: 9. Risk Assessment Tool Provided: LOW 10. Functional Assessment Tool: 11. Recreational Drug Use: Never Drug Type: Tobacco Use: Never Smoker Tobacco Type: Amount or Packs/day: How Many Years: Alcohol Use: No Frequency: Quant:
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
== END | disposition home or self-care (01) ==
LOC: PAIN 07:03
PROVIDERS: ATTEND Anesthesiology Pain Medicine
DX: M51.16 Intervertebral disc disorders with radiculopathy, lumbar region (principal); M48.061 Spinal stenosis, lumbar region without neurogenic claudication; M47.27 Other spondylosis with radiculopathy, lumbosacral region; M47.26 Other spondylosis with radiculopathy, lumbar region; M25.551 Pain in right hip; G89.29 Other chronic pain; I10 Essential (primary) hypertension; M19.90 Unspecified osteoarthritis, unspecified site; Z98.890 Other specified postprocedural states; Z79.899 Other long term (current) drug therapy; Z96.642 Presence of left artificial hip joint; Z79.891 Long term (current) use of opiate analgesic

== ENCOUNTER → 2021-05-19 | Emergency (ER) | payer OTHER ==
[~2021-05-19] VITALS: Ht 149.9 cm; Wt 101.6 kg
[~2021-05-19] MED LIST changes: +VALIUM2 MG PO
[2021-05-20 07:49] VITALS: BP 133/88
== END ==
LOC: ER 16:44
DX: R42 Dizziness and giddiness (principal); Z90.710 Acquired absence of both cervix and uterus; Z79.899 Other long term (current) drug therapy

== ENCOUNTER → 2021-06-13 | Outpatient (CLI) | payer OTHER | LOC: MRI 06-02 09:28 | PROVIDERS: ATTEND Family Medicine | DX: R42 Dizziness and giddiness (principal) ==